=== PATIENT | female | born 1975 | race Caucasian/White ===

== ENCOUNTER 2020-06-10 08:16 | Outpatient (CLI) | payer BC, SELFPAY ==
--- NOTE | 2020-06-10 08:25 | MM_ITS ---
WS: [id number] BILATERAL DIGITAL SCREENING MAMMOGRAPHY WITH CAD CLINICAL INFORMATION: SCREENING HISTORY: Screening mammogram. No current complaints. COMPARISON: January 27, 2019 TECHNIQUE: Bilateral CC and MLO views. FINDINGS: Scattered fibroglandular densities bilaterally. No suspicious focal mass, asymmetry, calcifications, or architectural distortion. No evidence of malignancy. Punctate calcifications. Incidental axillary tail intramammary lymph nodes. MM/[place] [id number] IMPRESSION: BI-RADS: 2-Benign FOLLOW UP: 1 Year Follow-up Recommend return to annual screening mammography.
== END 2020-06-10 08:17 | disposition home or self-care (01) ==
PROVIDERS: Family Provider Family Medicine; PCP Family Medicine; Visit Provider Family Medicine
DX: Z12.31 Encounter for screening mammogram for malignant neoplasm of breast (principal)
CPT/HCPCS: 77067

== ENCOUNTER → 2020-08-27 16:08 | Outpatient (BNVA) | payer BC, SELFPAY | PROVIDERS: Family Provider Family Medicine; PCP Family Medicine; Visit Provider Internal Medicine | DX: K52.9 Noninfective gastroenteritis and colitis, unspecified (principal); Z01.812 Encounter for preprocedural laboratory examination; K92.1 Melena | CPT/HCPCS: 36415; 82784; 83516; 87635 ==

== ENCOUNTER 2020-09-02 08:27 | Day surgery (SDC) | payer BC, SELFPAY ==
--- NOTE | 2020-09-02 08:42 | P.HPUD_ITS ---
Surgery/Procedure H&P Update DATE OF PROCEDURE: September 02, 2020 DATE H&P PERFORMED: 08/27/20 PREOP DIAGNOSIS: t PLANNED PROCEDURE: Operation Date: 09/02/20 09:45 Proposed Procedures p EGD/Colon 50394 K52.9(Not Applicable) - Abhijeet Fierro MD s Colonoscopy 77899 K52.9(Not Applicable) - Abhijeet Fierro MD
--- NOTE | 2020-09-02 08:42 | W.PM.OPSUD ---
Surgery/Procedure H&P Update DATE OF PROCEDURE: September 02, 2020 DATE H&P PERFORMED: 08/27/20 PREOP DIAGNOSIS: t PLANNED PROCEDURE: Operation Date: 09/02/20 09:45 Proposed Procedures p EGD/Colon 65493 K52.9(Not Applicable) - Abhijeet Fierro MD s Colonoscopy 82098 K52.9(Not Applicable) - Abhijeet Fierro MD
--- NOTE | 2020-09-02 08:42 | ANES.PREANE2 ---
Pre-Anesthetic Assessment Pre-Anesthetic Assessment: Height/Weight: Height 1.73 m Weight 144.696 kg Preop Diagnosis: t Proposed Procedure: Operation Date: 09/02/20 09:45 Proposed Procedures p EGD/Colon 17399 K52.9(Not Applicable) - Abhijeet Fierro MD s Colonoscopy 77371 K52.9(Not Applicable) - Abhijeet Fierro MD Was Beta Angelique taken within 24 hours: Yes Was Clonidine taken within 24 hours: N/A Social: Social History: No alcohol and No tobacco Exam: Pre-Anes Outpt Exam: alert, oriented x 3, clear to auscultation bilaterally and regular rate & rhythm Airway: Submandibular: WNL Cervical ROM: WNL MP: 2 Dentition: Full CV/HEM: CV/HEM: HTN Metabolic: Metabolic: Morbid obesity Musc/skel: Musc/skel: Fibromyalgia Anesthetic Plan: ASA status: 3 Anesthesia: MAC Risk of > 500 ml blood loss (7ml/kg in children): No PFSH Anesthesia PFSH: Family History (Updated 08/27/20 @ 15:[address]) Grandfather Heart disease Father Heart disease Social History (Updated 08/27/20 @ 15:08 by Maggie Mosley, CT) Smoking and tobacco status: never smoked Alcohol intake: current Alcohol intake frequency: holidays/special occasions only Marital status: Number of children: 2 service: No History of recent travel: No Current gender identity: Female Data Anesthesia Cardiac Studies: No Data to Display
[2020-09-02 08:53] VITALS: BP 118/83; PULSE 85; RESP 18; TEMP 36.6; O2SAT 96
[2020-09-02] MEDS: sodium chloride 0.9% 1,000 ML 30 ML IV (09:16)
[2020-09-02 10:03] VITALS: BP 96/70; PULSE 83; RESP 18; TEMP 36.8; O2SAT 94
--- NOTE | 2020-09-02 10:08 | ANE.PACU2 ---
Inpatient post-anesthesia follow up: Airway intact: Yes Vital signs: Temperature 97.9 F Pulse Rate 85 Respiratory Rate 18 Blood Pressure 118/83 Pulse Oximetry 96 Oxygen Delivery Me thod Oxygen Flow Rate Fraction of Inspir ed Oxygen Hydration adequate: Yes Nausea and vomiting: No Mental status: Baseline
[2020-09-02 10:27] VITALS: BP 117/87; PULSE 77; RESP 16; O2SAT 95
--- NOTE | 2020-09-02 12:03 | ANE.PACU2 ---
Inpatient post-anesthesia follow up: Airway intact: Yes Vital signs: Temperature 98.2 F Pulse Rate 77 Respiratory Rate 16 Blood Pressure 117/87 Pulse Oximetry 95 Oxygen Delivery Me thod Room Air Oxygen Flow Rate Fraction of Inspir ed Oxygen Hydration adequate: Yes Nausea and vomiting: No Pain level: 1 Mental status: Baseline
[2020-09-03 12:27] LABS: H. Pylori / CLO Test Negative
== END 2020-09-02 10:37 | disposition home or self-care (01) ==
PROVIDERS: PCP Family Medicine; Visit Provider Internal Medicine
PROC: 0DJ08ZZ Inspection of Upper Intestinal Tract, Via Natural or Artificial Opening Endoscopic (ICD-10-PCS; CPT 43235; principal; 2020-09-02 09:45)
PROC: 0DJD8ZZ Inspection of Lower Intestinal Tract, Via Natural or Artificial Opening Endoscopic (ICD-10-PCS; CPT 45378; 2020-09-02 09:45)
DX: K92.1 Melena (principal); K52.9 Noninfective gastroenteritis and colitis, unspecified; K29.71 Gastritis, unspecified, with bleeding; I10 Essential (primary) hypertension; E66.01 Morbid (severe) obesity due to excess calories; Z68.42 Body mass index [BMI] 45.0-49.9, adult; M79.7 Fibromyalgia
CPT/HCPCS: 43239; 45380; 82274; 83630; 87077; 87493; 87506; 88305; 96360; J2704; J7030

== ENCOUNTER 2021-01-10 09:07 | Outpatient (CLI) | payer BC, SELFPAY ==
--- NOTE | 2021-01-10 09:37 | MR_ITS ---
WS: [id number] MRI/MRCP OF THE ABDOMEN WITHOUT GADOLINIUM ENHANCEMENT TECHNIQUE: Thin and thick slab MRCP, Axial T2, Coronal MRCP, Axial Dual Echo, and Axial 2-D Fiesta imaging was obtained. Coronal 2-D Fiesta imaging. CLINICAL INFORMATION: SOD COMPARISON: None. FINDINGS: Diffuse fatty infiltration of the liver. Prior cholecystectomy. Normal portal vein and splenic vein. Normal spleen. Normal GE junction. Fatty atrophy of the pancreas. No evidence of pancreatic mass or l esion. Normal pancreatic duct. No intrahepatic biliary ductal dilatation. Mild prominence of the comm on bile duct measuring 9 mm. No evidence of choledocholithiasis. Normal tapering of the common bile d uct distally. No hydronephrosis in the kidneys. Adrenal glands are normal. Normal caliber abdominal aorta. Prior ch olecystectomy. MR/MR MRCP [id number] Impression: 1. Diffuse fatty infiltration of the liver. 2. Prior cholecystectomy. Slight prominence of the common bile duct measuring 9 mm with normal tapering distally. No filling defects. 3. Mild fatty atrophy of the pancreas. No evidence of pancreatic mass or lesio n. Normal pancreatic duct. 4. Normal portal vein and splenic vein. 5. Normal caliber abdominal aorta. 6. No intrahepatic biliary ductal dilatation. 7. No other significant findings.
== END 2021-01-10 09:08 | disposition home or self-care (01) ==
PROVIDERS: PCP Internal Medicine; Visit Provider Internal Medicine
DX: K83.4 Spasm of sphincter of Oddi (principal); K76.0 Fatty (change of) liver, not elsewhere classified; Z90.49 Acquired absence of other specified parts of digestive tract; K86.89 Other specified diseases of pancreas
CPT/HCPCS: 74181

== ENCOUNTER → 2021-04-08 15:47 | Outpatient (BNVA) | payer BC, SELFPAY | PROVIDERS: PCP Internal Medicine; Visit Provider Nurse Practitioner Family | DX: N95.1 Menopausal and female climacteric states (principal); L68.0 Hirsutism; L65.9 Nonscarring hair loss, unspecified; Z71.3 Dietary counseling and surveillance; R53.83 Other fatigue | CPT/HCPCS: 80053; 82607; 83036; 84443 ==

== ENCOUNTER 2021-04-10 07:40 | Outpatient (CLI) | payer BC, SELFPAY ==
[2021-04-10 08:35] LABS: Chol HDL Ratio 4.24 mg/dL (0.0-4.40); Cholesterol 212 mg/dL (0-200); HDL Cholesterol 50 mg/dL (60-100); LDL Cholesterol Calculated 112 mg/dL (50-129); LDL HDL Ratio 2.24 RATIO (0.00-3.22); Triglycerides 251 mg/dL (0-150)
== END 2021-04-10 07:41 | disposition home or self-care (01) ==
LOC: LAB 07:43
PROVIDERS: PCP Internal Medicine; Visit Provider Nurse Practitioner Family
DX: Z00.00 Encounter for general adult medical examination without abnormal findings (principal)
CPT/HCPCS: 36415; 80061

== ENCOUNTER 2021-06-04 09:52 | Outpatient (CLI) | payer BC, SELFPAY ==
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
== END 2021-06-04 09:53 | disposition home or self-care (01) ==
PROVIDERS: PCP Internal Medicine; Visit Provider Nurse Practitioner Family
DX: M47.814 Spondylosis without myelopathy or radiculopathy, thoracic region (principal); M47.812 Spondylosis without myelopathy or radiculopathy, cervical region; W19.XXXA Unspecified fall, initial encounter
CPT/HCPCS: 72040; 72072

== ENCOUNTER → 2021-08-26 08:51 | Outpatient (BNVA) | payer BC, SELFPAY | PROVIDERS: PCP Internal Medicine; Visit Provider Orthopaedic Surgery | DX: M54.2 Cervicalgia (principal) | CPT/HCPCS: 72050 ==

== ENCOUNTER 2021-10-17 13:37 | Outpatient (CLI) | payer BC, SELFPAY ==
--- NOTE | 2021-10-17 13:42 | MM_ITS ---
WS: [id number] BILATERAL 3D TOMOSYNTHESIS DIGITAL SCREENING MAMMOGRAPHY WITH CAD CLINICAL INFORMATION: SCREENING HISTORY: Screening mammogram. Bilateral nipple discharge yellow COMPARISON: June 10, 2020 TECHNIQUE: Bilateral CC and MLO views. FINDINGS: Scattered fibroglandular densities bilaterally. Incidental axillary tail lymph nodes. Incidental punc el calcifications. No suspicious focal mass, asymmetry, calcifications, or architectural distortion . No evidence of malignancy. MM/[place] [id number] IMPRESSION: BI-RADS: 2-Benign FOLLOW UP: 1 Year Follow-up Recommend return to annual screening mammography.
== END 2021-10-17 13:38 | disposition home or self-care (01) ==
LOC: RADSHAW 13:40
PROVIDERS: PCP Internal Medicine; Visit Provider Nurse Practitioner Women's Health
DX: Z12.31 Encounter for screening mammogram for malignant neoplasm of breast (principal)
CPT/HCPCS: 77063; 77067

== ENCOUNTER 2021-11-08 13:08 | Outpatient (CLI) | payer BC, SELFPAY ==
--- NOTE | 2021-11-08 15:30 | MR_ITS ---
WS: [id number] MRI CERVICAL SPINE NONCONTRAST HISTORY: M54.2 - Cervicalgia COMPARISON: 06/12/2016 Technique: Multiplanar, multisequence noncontrast imaging of the cervical spine. Straightening and slight reversal the normal cervical lordosis centered at the C5 vertebral body. Linda y minimal disc desiccation throughout the cervical spine. No marrow edema or fracture. Signal within the cervical cord is normal. Visualized posterior fossa is unremarkable. Craniocervical junction, C1 and C2 relationship, odontoid process and soft tissues are normal. C2-C3: Normal. C3-C4: Very mild disc bulging. Small RIGHT foraminal osteophyte. Similar to the prior study. No steno sis. C4-C5: Mild disc bulging. No stenosis. C5-C6: Mild disc bulging with a central disc protrusion. Very small foraminal osteophytes. There is a lso a central annular fissure. Central disc protrusion is new since the prior study. C6-C7: Small osteophytes. No stenosis. C7-T1: Normal. Paraspinal soft tissue are normal. MR/MR cervical spin wo con* [id number] IMPRESSION: 1. New small central disc protrusion at C5-6 and annular fissure. No stenosis. 2. Very mild RIGHT foraminal narrowing due to an osteophyte. Similar to the pr ior study. 3. Slight reversal of the normal cervical lordosis. Unchanged since the prior study.
== END 2021-11-08 13:09 | disposition home or self-care (01) ==
PROVIDERS: PCP Family Medicine; Visit Provider Orthopaedic Surgery
DX: M54.2 Cervicalgia (principal)
CPT/HCPCS: 72141

== ENCOUNTER → 2022-05-05 07:50 | Outpatient (BNVA) | payer BC, SELFPAY | PROVIDERS: PCP Family Medicine; Visit Provider Family Medicine | DX: I10 Essential (primary) hypertension (principal); K86.81 Exocrine pancreatic insufficiency; F41.9 Anxiety disorder, unspecified; L30.9 Dermatitis, unspecified; G47.33 Obstructive sleep apnea (adult) (pediatric); M10.9 Gout, unspecified | CPT/HCPCS: 80053; 80061; 83036; 83721; 84550 ==

== ENCOUNTER → 2022-08-20 14:34 | Outpatient (BNVA) | payer BC, SELFPAY | PROVIDERS: PCP Family Medicine; Visit Provider Family Medicine | DX: R60.9 Edema, unspecified (principal); I10 Essential (primary) hypertension; M10.9 Gout, unspecified; F41.9 Anxiety disorder, unspecified | CPT/HCPCS: 80053; 84443; 84550; 85025 ==

== ENCOUNTER 2022-08-28 08:37 | Outpatient (CLI) | payer BC, SELFPAY ==
--- NOTE | 2022-08-28 09:15 | US_ITS ---
WS: [id number] ULTRASOUND SOFT TISSUES LEFT ankle. HISTORY: lower leg swelling COMPARISON: None available. TECHNIQUE: 2-D and color Doppler imaging is submitted. Ultrasound is performed on the lateral LEFT ankle. There is no underlying fluid or mass identified. N o cyst or fluid in the tendon sheath. US/US soft tissue/extremity [id number] IMPRESSION: Negative soft tissue ultrasound LEFT ankle.
== END 2022-08-28 08:38 | disposition home or self-care (01) ==
PROVIDERS: PCP Family Medicine; Visit Provider Family Medicine
DX: M79.89 Other specified soft tissue disorders (principal)
CPT/HCPCS: 76882

== ENCOUNTER 2022-10-09 10:55 | Outpatient (CLI) | payer BC, SELFPAY ==
--- NOTE | 2022-10-09 11:15 | USCV_ITS ---
Lacey Brooks Age: 47 Gender: F : 1975 Exam Date: 10/09/2022 11:18 Ordering Phys: Ivan Long DO Technologist: ELIO Exam Location: [facility] – [place] Indication: Edema HISTORY: Lower extremity edema. PROCEDURES: Venous duplex imaging was performed in bilateral lower extremities. The following venous structures were evaluated: common femoral vein, profunda vein, proximal portion of the greater saphenous vein, superficial femoral vein, and the popliteal vein. In addition, the posterior tibial and peroneal trunk were evaluated. Serial compression, augmentation maneuvers, and spectral Doppler flow evaluation were performed. FINDINGS: Normal 2-D Doppler and augmentation and compressibility throughout the lower extremity venous structures. Additional imaging through the proximal calf veins also reveals no thrombus. Limited evaluation of the greater saphenous vein is patent with no thrombus. CONCLUSIONS No DVT bilateral lower extremities. Dr. Roz Gordon DO (Electronically Signed) Final Date: 09 October 2022 12:26 Amended: 09 October 2022 12:30 C
== END 2022-10-09 10:56 | disposition home or self-care (01) ==
LOC: RAD 11:00
PROVIDERS: PCP Family Medicine; Visit Provider Family Medicine
DX: R60.9 Edema, unspecified (principal)
CPT/HCPCS: 93970

== ENCOUNTER 2023-02-26 08:25 | Outpatient (CLI) | payer BC, SELFPAY ==
--- NOTE | 2023-02-26 08:32 | MM_ITS ---
WS: [id number] Bilateral screening 3D tomosynthesis digital mammogram, 02/26/2023 Clinical Data: SCREENING Comparison: 10/16/2021, 06/10/2020, 01/27/2019, 12/16/2017, 12/10/2016, 11/29/2015, 04/22/2015, 11/08/2014, , 09/26/2013. Findings: The breast parenchymal pattern shows fibroglandular tissue. No spiculated masses or clustered calcifi cations are seen. There are no secondary signs of carcinoma. Impression: 1. Negative bilateral mammogram unchanged. 2. Recommend annual screening mammograms. MM/[place] [id number] BIRADS: 1-Negative FOLLOW UP: 1 Year Follow-up The CAD checkering machine adjuster was used.
== END 2023-02-26 08:26 | disposition home or self-care (01) ==
LOC: RAD 08:28
PROVIDERS: PCP Family Medicine; Visit Provider Family Medicine
DX: Z12.31 Encounter for screening mammogram for malignant neoplasm of breast (principal)
CPT/HCPCS: 77063; 77067

== ENCOUNTER → 2023-03-22 09:53 | Outpatient (BNVA) | payer BC, SELFPAY | PROVIDERS: PCP Family Medicine; Visit Provider Family Medicine | DX: E66.01 Morbid (severe) obesity due to excess calories (principal); I10 Essential (primary) hypertension; K52.9 Noninfective gastroenteritis and colitis, unspecified; R60.9 Edema, unspecified | CPT/HCPCS: 80053; 80061; 84439; 84443; 84550; 85025 ==

== ENCOUNTER 2023-04-26 08:54 | Outpatient (CLI) | payer BC, SELFPAY ==
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
== END 2023-04-26 08:55 | disposition home or self-care (01) ==
PROVIDERS: PCP Family Medicine; Visit Provider Family Medicine
DX: S69.91XA Unspecified injury of right wrist, hand and finger(s), initial encounter (principal); M25.531 Pain in right wrist; V89.2XXA Person injured in unspecified motor-vehicle accident, traffic, initial encounter
CPT/HCPCS: 73100

== ENCOUNTER 2023-12-31 08:45 | Outpatient (CLI) | payer BC, SELFPAY ==
--- NOTE | 2023-12-31 08:45 | MR_ITS ---
WS: [id number] MRI LUMBAR SPINE NONCONTRAST TECHNIQUE: Sagittal T1, T2 and STIR imaging. Axial T1 and T2 imaging. CLINICAL INFORMATION: M54.16 - Radiculopathy, lumbar region COMPARISON: None. FINDINGS: Mild lumbar curve. No acute compression. No high-grade central canal stenosis. Slight retrolisthesis L3 on L4 and L4 on L5. L1-L2: Mild facet arthropathy. Spinal canal and foramen are patent. L2-L3: Mild facet arthropathy. Spinal canal and foramen are patent. L3-L4: Slight retrolisthesis. Mild annular bulging. Mild facet arthropathy. Spinal canal and foramen are patent. L4-L5: Mild annular bulging with slight effacement of the ventral thecal sac. Moderate facet arthropa thy. Small facet effusions. Mild LEFT and no significant RIGHT foraminal narrowing. L5-S1: Mild annular bulging. Moderate facet arthropathy. Foramina are patent. Tapered narrowing of th e thecal sac due to prominent epidural fat. Visualized pelvic bony structures: Normal. Paravertebral soft tissues: Normal. MR/MR lumbar spine wo con* [id number] IMPRESSION: 1. Mild lumbar curve. No acute compression. No high-grade central canal stenos is. 2. Mild annular bulging L4-5 with slight effacement of the ventral thecal sac. Mild LEFT L4-5 foraminal narrowing. 3. Moderate facet arthropathy L4-5 with small facet effusions compatible with synovitis likely inflammatory or degenerative. 4. Moderate facet arthropathy L5-S1. 5. No other acute findings.
== END 2023-12-31 08:46 | disposition home or self-care (01) ==
PROVIDERS: PCP Family Medicine; Visit Provider Family Medicine
DX: M54.16 Radiculopathy, lumbar region (principal); M62.838 Other muscle spasm; M47.896 Other spondylosis, lumbar region; M47.898 Other spondylosis, sacral and sacrococcygeal region
CPT/HCPCS: 72148

== ENCOUNTER 2024-09-19 09:41 | Outpatient (CLI) | payer BC, SELFPAY ==
--- NOTE | 2024-09-19 09:46 | MM_ITS ---
WS: [id number] BILATERAL 3D TOMOSYNTHESIS DIGITAL SCREENING MAMMOGRAPHY WITH CAD CLINICAL INFORMATION: SCREENING HISTORY: Screening mammogram. No current complaints. COMPARISON: 2022 TECHNIQUE: Bilateral CC and MLO views. FINDINGS: Scattered fibroglandular densities bilaterally. No suspicious focal mass, asymmetry, calcifications, or architectural distortion. No evidence of malignancy. A few incidental punctate calcifications. MM/MM scr tomosynthesis [id number] IMPRESSION: DENSITY: There are scattered areas of fibroglandular density. BI-RADS: 2 - Benign. FOLLOW UP: 1 Year Follow-up Recommend return to annual screening mammography.
== END 2024-09-19 09:42 | disposition home or self-care (01) ==
PROVIDERS: PCP Family Medicine; Visit Provider Family Medicine
DX: Z12.31 Encounter for screening mammogram for malignant neoplasm of breast (principal); M77.31 Calcaneal spur, right foot; R92.323 Mammographic fibroglandular density, bilateral breasts; R92.1 Mammographic calcification found on diagnostic imaging of breast; M25.774 Osteophyte, right foot; R93.6 Abnormal findings on diagnostic imaging of limbs
CPT/HCPCS: 73630; 77063; 77067

== ENCOUNTER → 2024-10-17 13:43 | Outpatient (BNVA) | payer BC, SELFPAY | PROVIDERS: PCP Family Medicine; Visit Provider Family Medicine | DX: I10 Essential (primary) hypertension (principal); E03.9 Hypothyroidism, unspecified; F41.9 Anxiety disorder, unspecified; R23.2 Flushing; M47.816 Spondylosis without myelopathy or radiculopathy, lumbar region; M54.16 Radiculopathy, lumbar region | CPT/HCPCS: 80053; 80061; 82607; 84439; 84443; 84481; 85025 ==

== ENCOUNTER 2024-12-13 20:00 | Outpatient (CLI) | payer BC, SELFPAY | END 2024-12-13 20:01 | disposition home or self-care (01) | LOC: SLEEP 12-14 03:27 | PROVIDERS: PCP Family Medicine; Visit Provider Family Medicine | DX: G47.33 Obstructive sleep apnea (adult) (pediatric) (principal); G47.36 Sleep related hypoventilation in conditions classified elsewhere | CPT/HCPCS: 95810 ==